=== PATIENT | male | born 2000 | race Caucasian/White ===

== ENCOUNTER 2022-08-28 22:30 | Emergency (ER) | payer SELFPAY | END 2022-08-29 02:00 | disposition home or self-care (01) | LOC: JD.ED 22:30 | DX: R44.0 Auditory hallucinations (principal); R44.1 Visual hallucinations; Z72.0 Tobacco use; Z20.822 Contact with and (suspected) exposure to COVID-19 | CPT/HCPCS: 36415; 80053; 80143; 80179; 80306; 80307; 81001; 84443; 85025; 99284; U0002 ==

== ENCOUNTER 2025-07-02 16:58 | Emergency (ER) | payer OTHER | END 2025-07-02 18:00 | disposition home or self-care (01) | LOC: JD.ED 16:58 | DX: L98.9 Disorder of the skin and subcutaneous tissue, unspecified (principal); F17.200 Nicotine dependence, unspecified, uncomplicated | CPT/HCPCS: 99283 ==